=== PATIENT | female | born 1960 | race Two or more races ===

== ENCOUNTER 2019-07-10 11:33 | Emergency (ER) | payer MEDICAID ==
[~2019-07-10] VITALS: Ht 165.1 cm; Wt 84.4 kg
[2019-07-10 11:44] VITALS: BP 139/95
[2019-07-10] MEDS ORDERED: PROPOFOL 0 ML IV ONE (12:22)
[2019-07-10] MEDS ORDERED: FENTANYL PF 100MCG/2ML AMPUL ONE (12:22)
[2019-07-10] MEDS ORDERED: HYDROCODONE/APAP 5/325MG 1 EACH TABLET PO ONE (12:30)
[2019-07-10] MEDS ORDERED: HYDROCODONE/APAP 5/325MG 1 EACH TABLET ONE (12:30)
[2019-07-10] MEDS ORDERED: FENTANYL PF 100MCG/2ML AMPUL IV ONE (13:30)
== END 2019-07-10 14:02 | disposition home or self-care (01) ==
LOC: ER 11:41
DX: S52.572A Other intraarticular fracture of lower end of left radius, initial encounter for closed fracture (principal); S00.31XA Abrasion of nose, initial encounter; S09.8XXA Other specified injuries of head, initial encounter; I10 Essential (primary) hypertension; W01.198A Fall on same level from slipping, tripping and stumbling with subsequent striking against other object, initial encounter; Y93.89 Activity, other specified; Y92.89 Other specified places as the place of occurrence of the external cause; Y99.8 Other external cause status
CPT/HCPCS: 29125; 73090; 73110; 96374; 99284; J3010; J2704